=== PATIENT | male | born 1935 | race Caucasian/White ===

== ENCOUNTER → 2017-12-13 | Day surgery (SDC) | payer MEDICARE, OTHER ==
[2017-12-12 11:52] LABS: BASOPHILS % 0.6 % (0.0-1.0); EOSINOPHILS # (AUTO) 0.2 (0.0-0.4); EOSINOPHILS % 3.5 % (0.0-6.0); HEMATOCRIT 41.2 % (38.2-49.6); HEMOGLOBIN 14.3 g/dL (14.0-18.0); LYMPHOCYTES # (AUTO) 1.4 (1.0-3.2); LYMPHOCYTES % 20.9 % (18.0-39.1); MEAN CORPUSCULAR HGB CONC 34.7 g/dL (31-35); MEAN CORPUSCULAR VOLUME 100.7 fL (81-99); MONOCYTES # (AUTO) 0.8 (0.2-0.8); NEUTROPHILS # (AUTO) 4.1 (2.1-6.9); NEUTROPHILS % 61.8 % (38.7-80.0); PLATELET COUNT 204 x10e3/uL (140-360); RED BLOOD COUNT 4.09 x10e6/uL (4.3-5.7); RED CELL DISTRIBUTION WIDTH 13.1 % (11.7-14.4)
--- NOTE | 2017-12-12 12:47 | Diagnostic Imaging Report ---
EXAMINATION: CHEST 2 VIEWS INDICATION: Pre-admit COMPARISON: None FINDINGS: TUBES and LINES: None. LUNGS: Lungs are well inflated. Lungs are clear. There is no evidence of pneumonia or pulmonary edema. PLEURA: No pleural effusion or pneumothorax. Mild nonspecific elevation of the right hemidiaphragm. HEART AND MEDIASTINUM: The cardiomediastinal silhouette is unremarkable. There are atherosclerotic calcifications within the aorta. BONES AND SOFT TISSUES: No acute osseous lesion. Soft tissues are unremarkable. 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 There is slight deformity of the left posterior fifth and sixth ribs, which may represent old fracture deformity. UPPER ABDOMEN: No free air under the diaphragm. IMPRESSION: No acute radiographic abnormality. Signed by: Dr. Grey Roach MD on 12/12/2017 12:43 PM
[~2017-12-13] MED LIST: ASPIR-LOW81 MG PO; ATENOLOL50 MG PO; ATORVASTATIN CA20 MG PO; BENZTROPINE ME0.5 MG PO; CARBIDOPA-LEVO1 EAC4 PO; COQ-10100 MG PO; DEXAMETHASONE SOD PHOS INJ 4 MG/ML VIAL ONE; EPHEDRINE SULFATE INJ 50 MG/10 ML SYR ONE; FENTANYL CITRATE/PF 100MCG/2 ML INJ ONE; FUROSEMIDE INJ 10 MG/ML 4 ML VIAL ONE; HYOSCYAMINE 0.125 MG TAB ONE; LEVOFLOXACIN 500MG/D5W 100ML 100 ML IV ONE; LIDOCAINE HCL 2% LOCAL INJ 5 ML SDV VIAL INJ ONE; OMEPRAZOLE40 MG PO; ONDANSETRON HCL INJ 2 MG/ML VIAL ONE; PROPOFOL IV EMULSION 10 MG/ML 20 ML VIAL ONE; SEVOFLURANE INHAL SOLN 250 ML PEN BTL ONE; SINEMET 25-1001 EACH PO; TIZANIDINE HCL4 MG PO
--- NOTE | 2017-12-13 12:48 | Operative Report ---
DATE OF PROCEDURE: December 13, 2017 PREOPERATIVE DIAGNOSES 1. Benign prostatic hypertrophy. 2. Prostatic obstruction. POSTOPERATIVE DIAGNOSES 1. Benign prostatic hypertrophy. 2. Prostatic obstruction. OPERATIONS PERFORMED 1. Cystourethroscopy. 2. Transurethral resection of the prostate laser XPS. MAGAZINE SUPERVISOR: Dr. Henry. ANESTHETIC: General. Mr. Mcpherson is an 82-year-old male who presented with a chief complaint of lower urinary tract obstructive symptoms. Rectal exam showed an enlarged prostate gland about 50 to 60 g, smooth, firm and benign. His PSA was normal. His AUA score was 27. This patient was placed on the table in the lithotomy position and was prepped and draped in a sterile manner after satisfactory anesthesia. A number 23.5 cystoresectoscope was used, and cystourethroscopy was performed and confirmed the previous cystoscopic findings. The XPS laser scope generator was then started, starting at 120 noble vaporization level and 40 noble coagulation level. Vaporization of the prostate was started, starting at 12 o'clock position starting at the bladder neck to just proximal to the verumontanum. Vaporization of the prostate was then continued from 11 to 7 o'clock, again starting at the bladder neck to just proximal to the verumontanum and down to the capsular fibers. Again hemostasis was very adequate. Vaporization of the prostate was then started again from 1 to 5 o'clock, starting at the bladder neck to just proximal to the verumontanum and down to the capsular fibers. Again hemostasis was very adequate. At the termination of the procedure, the laser scope generator was shut down, the cystoresectoscope was removed, and a number 22-Georgian Bearden catheter was placed. Estimated blood loss was 0 mL. Plans for this patient are to be discharged home since his urine is perfectly clear with the Bearden catheter and is to return to the office in the morning for the Bearden catheter removal. Job#: [id number]
[2017-12-13 12:50] VITALS: BP 152/82
== END | disposition home or self-care (01) ==
LOC: OR 08:19
PROVIDERS: ATTEND Specialist
DX: N40.1 Benign prostatic hyperplasia with lower urinary tract symptoms (principal); N13.8 Other obstructive and reflux uropathy; I25.10 Atherosclerotic heart disease of native coronary artery without angina pectoris; M54.9 Dorsalgia, unspecified; G20 Parkinson's disease; M19.90 Unspecified osteoarthritis, unspecified site; G47.33 Obstructive sleep apnea (adult) (pediatric); I10 Essential (primary) hypertension; K21.9 Gastro-esophageal reflux disease without esophagitis; F41.9 Anxiety disorder, unspecified; Z01.810 Encounter for preprocedural cardiovascular examination; Z01.812 Encounter for preprocedural laboratory examination; Z79.82 Long term (current) use of aspirin; Z95.5 Presence of coronary angioplasty implant and graft; Z87.891 Personal history of nicotine dependence
CPT/HCPCS: 36415; 52648; 71046; 85025; J1100; J1940; J1956; J2001; J2405